=== PATIENT | male | born 1955 | race Hispanic/Latino ===

== ENCOUNTER → 2024-12-24 | Outpatient (CLI) | payer OTHER ==
[2024-12-24 21:51] VITALS: PULSE 72; RESP 20
[2024-12-24 22:30] VITALS: PULSE 68; RESP 12
[2024-12-24 23:00] VITALS: PULSE 70; RESP 14
[2024-12-24 23:30] VITALS: PULSE 70; RESP 12
[2024-12-25] VITALS (10 sets, daily range): PULSE 72–82; RESP 12–16
== END | disposition home or self-care (01) ==
LOC: SLP 20:38 → EDUNIT# 12-31 20:30
PROVIDERS: ATTEND Nurse Practitioner Family
DX: G47.33 Obstructive sleep apnea (adult) (pediatric) (principal); R40.0 Somnolence; R06.83 Snoring
CPT/HCPCS: 95810